=== PATIENT | female | born 1950 | race Hispanic/Latino ===

== ENCOUNTER 2017-06-28 09:51 | Day surgery (SDC) | payer MEDICARE ==
[2017-05-10 12:40] VITALS: BMI 32.2
[~2017-06-28 09:51] MED LIST: Sodium Chloride 0.9% 1,000 ML IV SCH
[2017-06-28] MEDS ORDERED: Propofol 10 mg/ml Inj (20 ML) ONE (11:30)
[2017-06-28 13:25] VITALS: BP 124/74; PULSE 65; RESP 17; TEMP 97.6; O2SAT 100
== END 2017-06-28 14:10 | disposition home or self-care (01) ==
LOC: ENDO 09:51
PROVIDERS: ATTEND Internal Medicine Gastroenterology
DX: Z12.11 Encounter for screening for malignant neoplasm of colon (principal); K64.8 Other hemorrhoids
CPT/HCPCS: 45380; J2001; J2704; J7040 ×2

== ENCOUNTER 2018-11-30 12:36 | Emergency (ER) | payer MEDICARE ==
[2018-11-30 12:37] VITALS: BMI 32.2
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
[2018-11-30 13:12] VITALS: TEMP 98.7
[2018-11-30 14:13] LABS: BASO # 0.06 K/mm3 (0.0-2.0); EOS # 0.2 (0.0-0.7); EOS % 3.9 % (1.5-5.0); HEMOGLOBIN 11.5 g/dL (12.0-16.0); LYMPH # 1.4 (1.2-3.4); LYMPH % 21.8 % (22.0-35.0); MEAN CELL VOLUME 89.9 fl (80.0-105.0); MEAN CORPUSCULAR HEMOGLOBIN 29.8 pg (25.0-35.0); MEAN CORPUSCULAR HGB CONC 33.1 g/dl (31.0-37.0); MEAN PLATELET VOLUME 9.6 fl (7.0-11.0); MONO # 0.4 (0.1-0.6); MONO % 6.9 % (1.0-6.0); RBC 3.86 10^6/uL (3.5-6.1); WHITE BLOOD COUNT 6.2 10^3/uL (4.5-11.0)
[2018-11-30 14:15] LABS: ALB/GLOB RATIO 1.6 (1.1-1.8); ALBUMIN 3.9 g/dL (3.0-4.8); ALT/SGPT 29 U/L (7-56); AST/SGOT 28 U/L (14-36); BLOOD UREA NITROGEN 16 mg/dL (7-21); CALCIUM 8.8 mg/dL (8.4-10.5); GFR NON-AFRICAN AMERICAN 50; LIPASE 99 U/L (23-300)
[2018-11-30] MEDS ORDERED: Sodium Chloride 0.9% 1,000 ML IV STA (14:18)
[2018-11-30 14:19] LABS: INR 1.1; PARTIAL THROMBOPLASTIN TIME 31.7 Seconds (26.9-38.3); PROTHROMBIN TIME 12.2 SECONDS (9.4-12.5)
--- NOTE | 2018-11-30 14:19 | RAD ---
Date of service: 11/30/2018 HISTORY: Abdominal pain. COMPARISON: No prior. FINDINGS: LUNGS: No active pulmonary disease. PLEURA: No significant pleural effusion identified, no pneumothorax apparent. CARDIOVASCULAR: No atherosclerotic calcification present Normal. OSSEOUS STRUCTURES: No significant abnormalities. VISUALIZED UPPER ABDOMEN: Normal. OTHER FINDINGS: None. IMPRESSION: No active disease.
[2018-11-30 14:26] LABS: TROPONIN I < 0.01 ng/mL
[2018-11-30] MEDS ORDERED: Iohexol 350 MG/100 ML VIAL ONE (14:34)
--- NOTE | 2018-11-30 15:10 | CT ---
Date of service: 11/30/2018 PROCEDURE: CT Abdomen and Pelvis with contrast HISTORY: right sided flank and RLQ pain, hematuria COMPARISON: None. TECHNIQUE: Intravenous contrast dose: 100 cc Omnipaque 350. Radiation dose: Total exam DLP = 668.11 mGy-cm. This CT exam was performed using one or more of the following dose reduction techniques: Automated exposure control, adjustment of the mA and/or kV according to patient size, and/or use of iterative reconstruction technique. FINDINGS: LOWER THORAX: 3.5 mm calculus lateral segment right lower lobe. LIVER: Unremarkable. No gross lesion or ductal dilatation. GALLBLADDER AND BILE DUCTS: Cholelithiasis without CT evidence of acute cholecystitis. PANCREAS: Unremarkable. No gross lesion or ductal dilatation. SPLEEN: Unremarkable. ADRENALS: Left adrenal myelolipoma. This measures 12 mm. Normal appearing right adrenal gland. KIDNEYS AND URETERS: 3 x 4 mm calculus at the right ureterovesical junction. The entire right ureter and collecting system are dilated. Additional lower pole calculus disease identified. Two calculi in the same lower pole calyx measure less than 4 mm. Unremarkable left collecting system and left ureter. Incidental finding(s): Bilateral primarily right renal cysts the preponderance of these are 10 mm or less. VASCULATURE: Unremarkable. No aortic aneurysm. No atherosclerotic calcification or mural plaque present. BOWEL: Diverticulosis without an acute inflammatory component or other associated pathologic process. APPENDIX: A normal appendix is visualized in it's entirety. PERITONEUM: Unremarkable. No free fluid. No free air. LYMPH NODES: Unremarkable. No enlarged lymph nodes. BLADDER: Unremarkable. REPRODUCTIVE: Unremarkable. BONES: No acute fracture. Levo scoliosis, secondary degenerative change at multiple levels. OTHER FINDINGS: None. IMPRESSION: 1. Unilateral, right hydroureteronephrosis. These findings are secondary to a 3 x 4 mm calculus at the right ureterovesical junction. 2. Right lower pole collecting system calculi neither larger than 4 mm. 3. Cholelithiasis without CT evidence of acute cholecystitis. 4. Incidental finding(s): There is a single, solid, pulmonary nodule that is < 6 mm in size. According to the 2017 Fleischner criteria, if the patient is low risk, no routine follow-up is recommended. If the patient is high risk, an optional CT at 12 months is recommended.
[2018-11-30 15:34] LABS: URINE BILIRUBIN NEGATIVE (NEGATIVE); URINE BLOOD LARGE (NEGATIVE); URINE GLUCOSE (UA) NEGATIVE (NEGATIVE); URINE LEUKOCYTE ESTERASE SMALL Leu/uL (NEGATIVE); URINE PROTEIN NEGATIVE mg/dL (<30 mg/dL); URINE UROBILINOGEN 0.2 E.U./dL (<1 E.U./dL)
[2018-11-30 15:38] LABS: URINE APPEARANCE SLIGHT-CLOUDY (CLEAR); URINE COLOR AMBER (YELLOW)
[2018-11-30 15:39] LABS: URINE RBC TNTC /hpf (0-2)
[2018-11-30 15:55] VITALS: BP 130/72; PULSE 63; RESP 16; O2SAT 99
--- NOTE | 2018-11-30 18:12 | CARD ---
APPROVED REPORT Date of service: 11/30/2018 EKG Measurement Heart [id number] <Conclusion> Sinus bradycardia Minimal voltage criteria for LVH, may be normal variant Borderline ECG
== END 2018-11-30 16:56 | disposition home or self-care (01) ==
LOC: ED 12:36
DX: R91.1 Solitary pulmonary nodule (principal); N20.0 Calculus of kidney; N13.4 Hydroureter; I10 Essential (primary) hypertension
CPT/HCPCS: 71045; 74177; 80053; 81001; 83690; 84484; 85025; 85610; 85730; 87086; 93005; 99284; J7030; Q9967